=== PATIENT | female | born 1955 | race Caucasian/White ===

== ENCOUNTER 2021-05-16 07:46 | Emergency (ER) | payer OTHER ==
[~2021-05-16] VITALS: Ht 157.5 cm; Wt 64.9 kg
[2021-05-16] MEDS ORDERED: PYRIDIUM200 MG PO (16:51)
[2021-05-16] MEDS ORDERED: BACTRIM DS TAB1 EACH PO (16:51)
== END 2021-05-16 17:15 | disposition home or self-care (01) ==
LOC: ER 07:46
DX: N39.0 Urinary tract infection, site not specified (principal); R10.2 Pelvic and perineal pain

== ENCOUNTER 2021-06-27 08:25 | Outpatient (CLI) | payer OTHER ==
[~2021-06-27 08:25] MED LIST: BACTRIM DS TAB1 EACH PO; PYRIDIUM200 MG PO
== END 2021-06-27 08:41 | disposition home or self-care (01) ==
LOC: TOM 08:25
PROVIDERS: ATTEND Otolaryngology
DX: R22.1 Localized swelling, mass and lump, neck (principal)

== ENCOUNTER 2022-12-19 10:43 | Emergency (ER) | payer OTHER ==
[~2022-12-19] VITALS: Ht 157.5 cm; Wt 62.6 kg
[2022-12-19] MEDS ORDERED: IPRATROPIU0.2 MG/1 M IH (13:42)
[2022-12-19] MEDS ORDERED: CLEOCIN HCL300 MG PO (13:42)
[2022-12-19] MEDS ORDERED: XOPENEX0.63 MG/3 IH (13:42)
[2022-12-19] MEDS ORDERED: ZYNCOF 400-201 EACH PO (13:42)
== END 2022-12-19 14:06 | disposition home or self-care (01) ==
LOC: ER 10:43
DX: J45.901 Unspecified asthma with (acute) exacerbation (principal); Z88.0 Allergy status to penicillin; Z91.041 Radiographic dye allergy status; Z88.2 Allergy status to sulfonamides; Z91.013 Allergy to seafood

== ENCOUNTER 2023-01-04 08:58 | Emergency (ER) | payer OTHER ==
[~2023-01-04] VITALS: Ht 157.5 cm; Wt 62.6 kg
[~2023-01-04 08:58] MED LIST changes: +CLEOCIN HCL300 MG PO; +IPRATROPIU0.2 MG/1 M IH; +XOPENEX0.63 MG/3 IH; +ZYNCOF 400-201 EACH PO
== END 2023-01-04 12:46 ==
LOC: ER 08:58
DX: J06.9 Acute upper respiratory infection, unspecified (principal); Z88.0 Allergy status to penicillin; Z91.041 Radiographic dye allergy status; Z91.013 Allergy to seafood; Z88.2 Allergy status to sulfonamides

== ENCOUNTER 2025-05-13 06:21 | Emergency (ER) | payer OTHER ==
[~2025-05-13] VITALS: Ht 157.5 cm; Wt 59.0 kg
[2025-05-13] MEDS ORDERED: ATORVALIQ20 MG/5 ML (07:23)
[2025-05-13] MEDS ORDERED: ATACAND16 MG (07:24)
[2025-05-13] MEDS ORDERED: MONTELUKAST SOD10 MG (07:24)
[2025-05-13] MEDS ORDERED: 0.9 % SODIUM CHLORIDE 1,000 ML IV ONE (08:45)
[2025-05-13] MEDS ORDERED: DIPHENHYDRAMINE HCL 50 MG/ML VIAL 1ML IV ONE (09:00)
[2025-05-13] MEDS ORDERED: METHYLPREDNISOLONE SOD SUCC 40 MG VIAL IV ONE (09:00)
[2025-05-13 09:23] LABS: PH,URINE 6.5 (5.0-8.0); URINE APPEARANCE Clear; URINE BILIRRUBIN Negative (NEGATIVE); URINE BLOOD Negative; URINE COLOR Yellow; URINE GLUCOSE Negative (NEGATIVE); URINE KETONE Negative (NEGATIVE); URINE LEUKOCYTE Moderate; URINE NITRATE Negative; URINE PROTEIN Negative (NEGATIVE)
[2025-05-13 09:27] LABS: URINE BACTERIA 174.9 uL (0.0-1933); URINE EPITHELIAL CELLS 4.5 uL (0.0-38.8); URINE WBC 12.3 uL (0.0-23.2)
[2025-05-13 09:29] LABS: INR 0.98; PARTIAL THROMBOPLASTIN TIME 24.6 SECONDS (22.0-34.0); PROTHROMBIN TIME 10.7 SECONDS (9.0-11.5)
[2025-05-13 09:30] LABS: URINE CAST 0.14 uL (0.0-1.40)
[2025-05-13 09:31] LABS: ALBUMIN 3.7 gm/dL (3.4-5.0); BILIRUBIN TOTAL 0.38 mg/dL (0.3-1.2); CALCIUM 8.7 mg/dL (8.5-10.1); CREATININE SERUM 0.64 mg/dL (0.55-1.02); GFR 91.74; GLOBULINA 3.9 G/DL (2.4-3.5); POTASSIUM 4.55 mEq/L (3.5-5.1); TOTAL PROTEIN 7.6 gm/dL (6.4-8.2)
[2025-05-13 09:32] LABS: EOS # 0.28 (0.04-0.54); EOS % 4.1 % (0.7-7.0); HEMATOCRIT 40.9 % (34.1-44.9); HEMOGLOBIN 13.4 g/dL (11.2-15.7); LYMPH # 1.81 (1.18-3.74); LYMPH % 26.5 % (19.3-53.1); MEAN CORPUSCULAR HEMOGLOBIN 29.4 pg (25.6-32.2); MONO # 0.59 (0.24-0.82); MONO % 8.6 % (4.7-12.5); NEUT # 4.08 (1.56-6.13); NEUT % 59.7 % (34.0-71.1); PLATELET COUNT 186 K/uL (163-369); RED BLOOD COUNT 4.56 M/uL (3.93-5.22)
[2025-05-13] MEDS ORDERED: MACROBID 100 M100 MG PO (10:57)
[2025-05-13] MEDS ORDERED: PROTONIX40 MG PO (10:57)
[2025-05-13] MEDS ORDERED: PROBIOTIC1 EAC2 PO (10:57)
== END 2025-05-13 11:21 | disposition home or self-care (01) ==
LOC: ER 06:21
PROVIDERS: General Practice
DX: R10.32 Left lower quadrant pain (principal); Z88.0 Allergy status to penicillin; Z91.041 Radiographic dye allergy status; Z88.1 Allergy status to other antibiotic agents; Z91.013 Allergy to seafood; E78.00 Pure hypercholesterolemia, unspecified; I10 Essential (primary) hypertension; N39.0 Urinary tract infection, site not specified
CPT/HCPCS: 36415; 74176; 96365; 99284; J7030